=== PATIENT | male | born 1945 | race Caucasian/White ===

== ENCOUNTER 2024-04-24 15:52 | Emergency (ER) | payer MEDICARE, OTHER ==
[~2024-04-24 15:52] MED LIST: Home HYDROcodone/Acetaminophen 5/325 MG #4 TABS/PACK PO ONE
== END 2024-04-24 19:34 | disposition home or self-care (01) ==
LOC: ED 15:52
DX: M54.6 Pain in thoracic spine (principal); W19.XXXA Unspecified fall, initial encounter; Y92.009 Unspecified place in unspecified non-institutional (private) residence as the place of occurrence of the external cause